=== PATIENT | male | born 1955 | race American Indian/Alaskan Native ===

== ENCOUNTER 2019-04-13 06:37 | Day surgery (SDC) | payer OTHER ==
[~2019-04-13 06:37] MED LIST: ANCEF/STERILE WATER 2 GM/20 ML 2 GM/20 ML SYRINGE IV NR; LACTATED RINGERS 1,000 ML IV SCH; NEURONTIN PO SCH; TYLENOL PO ONE
[2019-04-13] MEDS ORDERED: ZOFRAN IV PRN (07:26)
[2019-04-13] MEDS ORDERED: SUBLIMAZE IV PRN (07:26)
--- NOTE | 2019-04-13 07:27 | Anesthesia Day of Surgery ---
Anesthesia Day of Surgery - Day of Surgery Patient Examined: Yes Patient H&P Reviewed: Yes Patient is NPO: Yes Beta Blockers: Yes
--- NOTE | 2019-04-13 07:32 | Anesthesia Consultation ---
Anesthesia Consult and Med Hx Date of service: 04/13/19 - Airway Anesthetic Teeth Evaluation: Chipped ROM Head & Neck: Adequate Mental/Hyoid Distance: Adequate Mallampati Class: Class II Intubation Access Assessment: Probably Good - Pre-Operative Health Status ASA Pre-Surgery Classification: ASA3 Proposed Anesthetic Plan: General (GA if needed), MAC - Pulmonary Hx Smoking: Yes (STOPPED X 30 YRS) Hx Sleep Apnea: No (TERRA PRE SCREEN HIGH RISK.) - Cardiovascular System Hx Hypertension: Yes (X 30 YRS. Can climb two flights of stairs) Hx Coronary Artery Disease: Yes (Stents 2002, 2007,2012. Has cardiac clearance) Hx Heart Attack/AMI: Yes (35 YRS AGO) Hx Angina: No - Endocrine Hx Non-Insulin Dependent Diabetes: Yes - Other Systems Hx Cancer: No
--- NOTE | 2019-04-13 08:08 | Short Stay Summary ---
Short Stay Documentation Date of service: 04/13/19 - History H&P: obtained from office - Allergies and Medications Current Medications: Allergies No Known Allergies Allergy (Verified 04/06/19 17:28) Home Medications Medication Instructions Recorded Confirmed Last Taken Type Aspirin [Adult Aspirin] 81 mg PO DAILY 04/06/19 04/06/19 Unknown History Atenolol [Tenormin] 50 mg PO DAILY 04/06/19 04/06/19 Unknown History Chlorthalidone [Thalitone] 25 mg PO QDAY 04/06/19 04/06/19 Unknown History Clopidogrel [Plavix] 75 mg PO QDAY 04/06/19 04/06/19 Unknown History Ezetimibe [Zetia] 10 mg PO DAILY 04/06/19 04/06/19 Unknown History Losartan [Cozaar] 50 mg PO QDAY 04/06/19 04/06/19 Unknown History Rosuvastatin Calcium [Crestor] 40 mg PO DAILY 04/06/19 04/06/19 Unknown History metFORMIN XR [Glucophage XR] 500 mg PO QDAY 04/06/19 04/06/19 Unknown History Active Medications Celecoxib (Celebrex) 200 mg PO PREOP NR Stop: 04/13/19 23:59 Fentanyl (Sublimaze) 50 mcg IV Q5MIN PRN PRN Reason: Pain , Severe (7-10) Stop: 04/13/19 20:00 Gabapentin (Neurontin) 600 mg PO PREOP CROW Stop: 04/13/19 23:59 Lactated Ringer's (Lactated Ringers) 1,000 mls @ 75 mls/hr IV DIRECT CROW Cefazolin Sodium (Ancef/Sterile Water 2 Gm/20 Ml) 2 gm in 20 mls @ 80 mls/hr IV PREOP NR; Protocol Stop: 04/13/19 23:59 Ondansetron HCl (Zofran) 4 mg IV ONCE PRN PRN Reason: Nausea And Vomiting Stop: 04/13/19 16:00 - Physical exam General appearance: no acute distress Integumentary: no rash, no abnormal pigmentation HEENT: Atraumatic Lungs: Normal air movement Neurological: Normal speech - Brief post op/procedure progress note Date of procedure: 04/13/19 (dictation:[id number]) Pre-op diagnosis: right axillary mass Post-op diagnosis: same Procedure: Excisional biopsy of right axillary mass IVF 400cc EBL min Anesthesia: MAC Findings: lipomatous masses #1 - [id number] #2 - 1cm diameter Surgeon: KIMMY CALLEJAS Estimated blood loss: minimal Pathology: list (lipomatous masses) Specimen disposition: to lab Condition: stable - Hospital course Hospital course: uneventful - Disposition Condition at discharge: Stable Disposition: [id number] TO HOME OR SELFCARE Short Stay Discharge Plan Wound: open to air, keep clean and dry Special Instructions: no heavy lifting, other (no strenuous activity with right arm) Additional Instructions: Post Operative Instructions No driving until cleared by surgeon. Wound:May shower tomorrow. Pat dry the wound or wounds. Apply an ice pack to the wound or wounds for 10-20 minutes at a time. Do this at least 4-5 times a day. You can do it more if he would like. DIET: After surgery, start with a light diet. Consider having a liquid diet first. If you do well, you can advance to a regular diet as you feel comfortable. . Medication: Alternate the use of ibuprofen and Tylenol for the first 2 days. I want you to take these on a scheduled basis. : Take 600 mg of ibuprofen every 6 hours. Take 500 mg of Tylenol every 6 hours. You should alternate these 2 medicines. : In other words, beginning with the ibuprofen. After 3 hours, take the Tylenol. : Keep alternating the 2 drugs every 3 hours. Do this on a scheduled basis for the first 2 days. After that, you can take them as needed. It is very important that you use the prescription pain medicine only for very severe pain. Do not take the prescription medicine before you try using the ibuprofen and Tylenol. We will call you in a couple of days to see how youre doing. If you have any questions or concerns, always feel free to call the clinic at any time. DR CALLEJAS WANTS YOU TO EXAMINE SURGICAL SITE AND RT UPPER ARM . . RESUME PLAVIX IF THERE IS NO BRUISING TO SURGICAL AREA Follow up with: [facility] [Primary Care Provider] - 7 Days KIMMY CALLEJAS MD [Staff Physician] - 14 Days Forms: Outpatient Surgery DC Inst. Prescriptions: HYDROcodone/APAP 5-325 [Two Dot 5/325] 1 each PO Q6H PRN #10 tablet PRN Reason: Pain , Severe (7-10)
[2019-04-13] MEDS ORDERED: MARCAINE 0.5% INFILTRATI ONE (08:43)
[2019-04-13] MEDS ORDERED: XYLOCAINE 1% 20 mL ONE (08:43)
[2019-04-13] MEDS ORDERED: MARCAINE-EPI 0.5%-1:200,000 INFILTRATI ONE ×2 (08:43→09:25)
[2019-04-13] MEDS ORDERED: VERSED ONE (09:11)
[2019-04-13] MEDS ORDERED: SUBLIMAZE ONE (09:11)
[2019-04-13] MEDS ORDERED: DIPRIVAN 10 MG/ML IV ONE (09:21)
[2019-04-13] MEDS ORDERED: NACL 0.9% IR ONE (09:25)
[2019-04-13] MEDS ORDERED: XYLOCAINE 1% 20 mL INFILTRATI ONE (09:25)
[2019-04-13] MEDS ORDERED: TORADOL ONE (09:46)
--- NOTE | 2019-04-13 11:00 | Post Anesthesia Evaluation ---
- Post Anesthesia Evaluation Patient Participated: Yes Airway Patent: Yes Stable Respiratory Function: Yes Nausea/Vomiting: No Temp > 96.8F: Yes Pain Manageable: Yes Adequeate Hydration: Yes Anesthesia Complications: No Block Receding Appropriately: Not Applicable Patient on Ventilator: No
[2019-04-13 11:19] VITALS: BP 107/68
--- NOTE | 2019-04-13 16:44 | Operative Report ---
PREOPERATIVE DIAGNOSIS: Right axillary mass. POSTOPERATIVE DIAGNOSIS: Right axillary mass. PROCEDURE: Excisional biopsy of right axillary mass. ATTENDING PHYSICIAN: Lc Brown MD ANESTHESIA: Local MAC. IV FLUIDS: 400 mL. ESTIMATED BLOOD LOSS: Minimal. FINDINGS: Lipomatous mass in the right axilla. SPECIMENS: One large lipomatous mass that was 1 x 3 x 5 cm. The other one was 1 cm in diameter. DRAINS: None. COMPLICATIONS: None. DISPOSITION: Stable, transport to Recovery Room. INDICATIONS: This is a 63-year-old male who reports that a few months ago he noticed a large mass in the right axilla. It causes him discomfort. There is concern that this could be potentially a malignancy by the primary care physician. Request has been made for excisional biopsy. Procedure, risks and benefits were explained to the patient. Risks included but were not limited to infection, bleeding, pain, injury to surrounding structures, possible need for further procedures in the future. The patient understood and consented. OPERATIVE NOTE: The patient was brought to the operating room and placed on the table in supine position. After adequate sedation was established, the patient was positioned, prepped and draped in the usual sterile fashion. Antibiotics have been given prior to start of the case. SCDs were in place. Time-out was called. I began by planning the incision along the lines of tension. We injected 0.5% Marcaine and 1% lidocaine into the planned incision site. The skin was sharply incised. Thereafter, dissection was carried out with electrocautery. As we proceeded down, we quickly realized that the mass in question was a lipomatous mass. I excised it from the surrounding tissue using electrocautery. We had good hemostasis. I thoroughly checked the remainder of the area after we had excised the two masses. I did not appreciate any adenopathy at that point. Therefore, I felt that indeed this large mass that we excised was the cause of the abnormal sensation. I injected additional local into the surrounding tissue. Wound was thoroughly irrigated. A 3-0 Vicryl was used to close the deep layer with interrupted sutures. Skin was closed with 4-0 Monocryl subcuticular stitches. Skin was cleaned and dried. Dermabond was placed. The patient tolerated the procedure well. There were no complications. All counts were correct at the end of the case. JOB# [id number] CAROLYNE/EBEN
== END 2019-04-13 11:50 | disposition home or self-care (01) ==
LOC: OR 06:37
PROVIDERS: ATTEND Surgery
DX: D17.21 Benign lipomatous neoplasm of skin and subcutaneous tissue of right arm (principal); E11.9 Type 2 diabetes mellitus without complications; I25.10 Atherosclerotic heart disease of native coronary artery without angina pectoris; Z98.890 Other specified postprocedural states; Z79.899 Other long term (current) drug therapy; Z79.84 Long term (current) use of oral hypoglycemic drugs; Z79.82 Long term (current) use of aspirin; Z87.891 Personal history of nicotine dependence; Z95.5 Presence of coronary angioplasty implant and graft
CPT/HCPCS: 24071; 82803; 82962; 88304; J0690; J1885; J2250; J2704; J3010; J7120

== ENCOUNTER 2021-02-20 14:28 | Emergency (ER) | payer OTHER | END 2021-02-20 15:00 | LOC: ED 14:28 | DX: R31.9 Hematuria, unspecified (principal); Z53.21 Procedure and treatment not carried out due to patient leaving prior to being seen by health care provider ==